=== PATIENT | male | born 2000 | race Caucasian/White ===

== ENCOUNTER 2023-12-05 02:41 | Emergency (ER) | payer OTHER ==
[2023-12-05 02:50] VITALS: RESP 18; TEMP 98.5
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
[2023-12-05 04:20] VITALS: BP 121/75; PULSE 89
== END 2023-12-05 04:30 | disposition home or self-care (01) ==
LOC: EC 02:41
CPT/HCPCS: 74177; 99284

== ENCOUNTER → 2023-12-05 | Outpatient (CLI) | payer OTHER ==
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
== END | disposition home or self-care (01) ==
LOC: RADXRMAIN 16:12
PROVIDERS: ATTEND Emergency Medicine

== ENCOUNTER → 2023-12-07 | Outpatient (CLI) | payer OTHER ==
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
== END | disposition home or self-care (01) ==
LOC: RADXRMAIN 15:40
PROVIDERS: ATTEND Emergency Medicine
DX: S20.20XD Contusion of thorax, unspecified, subsequent encounter (principal)
CPT/HCPCS: 71046